=== PATIENT | female | born 1965 | race Caucasian/White ===

== ENCOUNTER → 2016-07-19 16:45 | Outpatient (CLI) | payer MEDICAID ==
[2015-11-03 05:38] VITALS: BMI 23.9
[~2016-07-19 16:45] MED LIST: CALCIUM 600+D T1 TA1 PO; EFFEXOR XR37.5 MG PO; MULTIPLE VITAMI1 TA1 PO; NORCO 7.5/325 T1 TA1 PO
== END | disposition home or self-care (01) ==
LOC: D.MAMMO 07-03 15:15
DX: Z12.31 Encounter for screening mammogram for malignant neoplasm of breast (principal)

== ENCOUNTER → 2017-09-05 11:30 | Outpatient (CLI) | payer MEDICAID ==
[2015-11-03 05:38] VITALS: BMI 23.9
== END ==
LOC: D.MAMMO 08-29 14:30
DX: Z12.31 Encounter for screening mammogram for malignant neoplasm of breast (principal)